=== PATIENT | male | born 1980 | race Two or more races ===

== ENCOUNTER 2021-04-26 06:42 | Inpatient (IN) | payer MEDICAID ==
[~2021-04-26] VITALS: Ht 172.7 cm; Wt 95.9 kg
--- NOTE | 2021-04-26 07:01 | NUR ---
Patient woke up around 0545 with a bleeding nose, vomiting, and lightheadedness. Patient states none of the symptoms have resolved. No hx of same. Patient denies ALMARAZ or blurry vision. Patient recently had labs on Monday and states there were multiple abnormal labs including low WBC. Patient in NAD. Respirations even and unlabored.
--- NOTE | 2021-04-26 07:04 | NUR ---
Abnormal labs also include low PLTs.
[2021-04-26] MEDS ORDERED: OXYMETAZOLINE NASAL SPRAY 0.05%,30ML ONE (07:09)
--- NOTE | 2021-04-26 07:09 | NUR ---
Report to SEA Ngo. Patient care transferred.
[2021-04-26] MEDS ORDERED: TRANEXAMIC ACID 100 MG/ML, 10ML ONE (07:10)
--- NOTE | 2021-04-26 07:21 | NUR ---
Report from BECCA RN. MD Fink at bedside for eval and med administartion.
[2021-04-26] MEDS ORDERED: TRANEXAMIC ACID 100 MG/ML, 10ML TP ONE (08:00)
[2021-04-26] MEDS ORDERED: OXYMETAZOLINE NASAL SPRAY 0.05%, 15ML NAS ONE (08:00)
[2021-04-26 08:17] LABS: BASOPHILS % (AUTO) 1 % (0-1); EOSINOPHILS % (AUTO) 4 % (1-7); LYMPHOCYTES % (AUTO) 13 % (22-44); MEAN CORPUSCULAR HEMOGLOBIN 30.8 pg (27.5-34.5); MEAN CORPUSCULAR HGB CONC 34.9 g/dL (33.2-36.2); MEAN PLATELET VOLUME 9.5 fL (7.4-10.4); MONOCYTES % (AUTO) 9 % (2-9); NEUTROPHILS % (AUTO) 72 % (42-75); PLATELET COUNT 113 x10^3/uL (130-400); RED BLOOD COUNT 2.91 x10^6/uL (4.38-5.82); RED CELL DISTRIBUTION WIDTH 13.3 % (9.4-14.8)
[2021-04-26 08:18] LABS: MD NO
[2021-04-26 08:26] LABS: ALBUMIN 3.3 g/dL (3.4-5.0); ANION GAP 12 mmol/L (5-15); CALCIUM 8.8 mg/dL (8.5-10.1); CHLORIDE 98 mmol/L (98-107); CREATININE 7.28 mg/dL (0.7-1.3)
[2021-04-26 08:28] LABS: INTERNATIONAL NORMALIZED RATIO 1.07 (0.93-1.1); PROTHROMBIN TIME 11.4 Seconds (9.6-11.5)
--- NOTE | 2021-04-26 08:40 | NUR ---
MD Fink back to bedside. Pt's nose has stopped bleeding at this time. Reviewing lab work and consulting with nephro.
--- NOTE | 2021-04-26 08:53 | NUR ---
Bedside report to SEA Galaviz, to assume full care. Pt up to bathroom with UA cup.
[2021-04-26] MEDS ORDERED: ONDANSETRON ODT 4 MG PO ONE (09:00)
--- NOTE | 2021-04-26 09:05 | NUR ---
BEDSIDE REPORT FROM SEA CARR. PT RESTING IN [facility] AT THIS TIME, PT STATES HE WAS NAUSEATED AND TOOK ZOFRAN ODT 4MG FROM HOME AT APPROX 0830 THIS MORNING. PT STATES NO OTHER NEEDS AT THIS TIME, WCTM.
[2021-04-26] MEDS ORDERED: FENTANYL PF 100 MCG/2ML ONE (11:28)
[2021-04-26] MEDS ORDERED: FLUMAZENIL 0.1 MG/1 ML, 5ML ONE (11:29)
[2021-04-26] MEDS ORDERED: MIDAZOLAM 1 MG/ML, 5ML ONE (11:29)
[2021-04-26] MEDS ORDERED: NALOXONE 1 MG/ML, 2ML ONE (11:29)
[2021-04-26] MEDS ORDERED: LIDOCAINE 1%, 20ML ONE (11:36)
[2021-04-26] MEDS ORDERED: CEFAZOLIN PMX 1GM/50ML 50 ML ONE (12:10)
[2021-04-26] MEDS ORDERED: PROMETHAZINE 25 MG/ML, 1ML IM PRN (12:30)
[2021-04-26] MEDS ORDERED: POLYETHYLENE GLYCOL 17 GM PACKET PO PRN (12:30)
[2021-04-26] MEDS ORDERED: OXYcodone IR 5MG TABLET PO PRN (12:30)
[2021-04-26] MEDS ORDERED: morphine SULFATE 10 MG/ML, 1ML IVPush PRN (12:30)
[2021-04-26] MEDS ORDERED: ONDANSETRON 2MG/ML, 2ML IVPush PRN (12:30)
[2021-04-26] MEDS ORDERED: BISACODYL 10 MG SUPP PR PRN (12:30)
[2021-04-26] MEDS ORDERED: hydrALAzine 20 MG/ML, 1ML IVPush PRN (12:30)
[2021-04-26] MEDS ORDERED: DOCUSATE 100 MG CAPSULE PO PRN (12:30)
[2021-04-26 13:21] VITALS: BP 136/78
[2021-04-26 14:01] VITALS: BP 135/77
[2021-04-26] MEDS ORDERED: AMLO-211 PO (14:03)
[2021-04-26] MEDS ORDERED: OMEP40CA8 PO (14:03)
[2021-04-26] MEDS ORDERED: FURO-92 PO (14:07)
[2021-04-26] MEDS ORDERED: CARV12.52 PO (14:07)
[2021-04-26] MEDS ORDERED: SPIR50TA4 PO (14:07)
[2021-04-26 18:45] VITALS: BP 126/68
[2021-04-26] MEDS: CARVEDILOL 12.5 MG TABLET PO SCH (20:29)
[2021-04-26] MEDS: HEPARIN 5,000 UNITS/ML, 1ML SQ SCH (20:31)
[2021-04-26] MEDS: ACETAMINOPHEN 325 MG TABLET PO PRN (20:37)
[2021-04-27 00:20] VITALS: BP 114/69
[2021-04-27] MEDS: HEPARIN 5,000 UNITS/ML, 1ML SQ SCH ×3 (05:32→21:21)
[2021-04-27 05:49] LABS: BASOPHILS % (AUTO) 1 % (0-1); EOSINOPHILS % (AUTO) 6 % (1-7); LYMPHOCYTES % (AUTO) 16 % (22-44); MEAN CORPUSCULAR HEMOGLOBIN 30.8 pg (27.5-34.5); MEAN CORPUSCULAR HGB CONC 35.5 g/dL (33.2-36.2); MONOCYTES % (AUTO) 11 % (2-9); NEUTROPHILS % (AUTO) 67 % (42-75); PLATELET COUNT 108 x10^3/uL (130-400); RED BLOOD COUNT 2.88 x10^6/uL (4.38-5.82); RED CELL DISTRIBUTION WIDTH 13.2 % (9.4-14.8)
[2021-04-27 06:02] LABS: % IRON SATURATION 9 % (20-55); ANION GAP 10 mmol/L (5-15); CALCIUM 8.8 mg/dL (8.5-10.1); CHLORIDE 103 mmol/L (98-107); CHOLESTEROL, TOTAL 176 mg/dL (140-239); CREATININE 7.34 mg/dL (0.7-1.3); IRON LEVEL 46 mcg/dL (65-175); TOTAL IRON BINDING CAPACITY 507 mcg/dL (250-450)
[2021-04-27 06:10] LABS: MD NO
[2021-04-27 06:13] LABS: CHOL/HDL RATIO 2.9; HDL CHOL % 34 % (26-37); HDL CHOLESTEROL (DIRECT) 60 mg/dL (40-60); LDL CHOLESTEROL,CALCULATED 99 mg/dL (54-169); LDL/HDL RATIO 1.7 (0.5-3.0); TRIGLYCERIDES 85 mg/dL (50-200); VLDL CHOLESTEROL 17 mg/dL (0-25)
[2021-04-27 06:51] VITALS: BP 141/79
[2021-04-27] MEDS: CARVEDILOL 12.5 MG TABLET PO SCH ×2 (08:07→21:21)
[2021-04-27] MEDS: OMEPRAZOLE 20 MG CAPSULE.DR PO SCH (08:07)
[2021-04-27] MEDS: AMLODIPINE 10 MG TAB PO SCH (08:07)
[2021-04-27] MEDS: FUROSEMIDE 40 MG TABLET PO SCH (08:07)
[2021-04-27] MEDS: ACETAMINOPHEN 325 MG TABLET PO PRN ×2 (08:19→22:42)
[2021-04-27] MEDS: FERROUS GLUCONATE 324 MG TABLET PO SCH ×2 (08:30→17:00)
[2021-04-27] MEDS: ONDANSETRON ODT 4 MG PO PRN (10:29)
[2021-04-27] MEDS: SEVELAMER CARBONATE 800MG TAB PO SCH ×2 (12:00→16:35)
[2021-04-27 13:30] VITALS: BP 132/82
[2021-04-27 18:40] VITALS: BP 121/74
[2021-04-28 00:18] VITALS: BP 122/67
[2021-04-28] MEDS: HEPARIN 5,000 UNITS/ML, 1ML SQ SCH ×3 (05:38→21:08)
[2021-04-28 07:03] VITALS: BP 131/74
[2021-04-28] MEDS: FERROUS GLUCONATE 324 MG TABLET PO SCH ×2 (08:00→17:00)
[2021-04-28] MEDS: SEVELAMER CARBONATE 800MG TAB PO SCH ×3 (08:54→17:33)
[2021-04-28] MEDS: AMLODIPINE 10 MG TAB PO SCH (08:54)
[2021-04-28] MEDS: FUROSEMIDE 40 MG TABLET PO SCH (08:54)
[2021-04-28] MEDS: OMEPRAZOLE 20 MG CAPSULE.DR PO SCH (08:55)
[2021-04-28] MEDS: CARVEDILOL 12.5 MG TABLET PO SCH ×2 (08:55→21:08)
[2021-04-28] MEDS: ACETAMINOPHEN 325 MG TABLET PO PRN ×3 (11:35→21:08)
[2021-04-28 13:10] VITALS: BP 109/61
[2021-04-28] MEDS: ONDANSETRON ODT 4 MG PO PRN (14:58)
[2021-04-28 20:00] VITALS: BP_SYST 104; BP_SYST 106; BP_DIAS 69
[2021-04-29 01:36] VITALS: BP 116/74
[2021-04-29] MEDS: HEPARIN 5,000 UNITS/ML, 1ML SQ SCH ×2 (05:43→12:11)
[2021-04-29 06:03] LABS: ALBUMIN 2.9 g/dL (3.4-5.0); CALCIUM 8.9 mg/dL (8.5-10.1); CHLORIDE 102 mmol/L (98-107); CREATININE 5.56 mg/dL (0.7-1.3)
[2021-04-29 06:04] LABS: ANION GAP 5 mmol/L (5-15)
[2021-04-29 07:49] VITALS: BP 150/86
[2021-04-29] MEDS: FERROUS GLUCONATE 324 MG TABLET PO SCH ×2 (08:34→16:57)
[2021-04-29] MEDS: SEVELAMER CARBONATE 800MG TAB PO SCH ×3 (08:35→16:58)
[2021-04-29] MEDS: OMEPRAZOLE 20 MG CAPSULE.DR PO SCH (08:36)
[2021-04-29] MEDS: FUROSEMIDE 40 MG TABLET PO SCH (08:36)
[2021-04-29] MEDS: ACETAMINOPHEN 325 MG TABLET PO PRN (08:39)
[2021-04-29] MEDS: AMLODIPINE 10 MG TAB PO SCH (09:56)
[2021-04-29] MEDS: CARVEDILOL 12.5 MG TABLET PO SCH (09:56)
[2021-04-29] MEDS: ONDANSETRON ODT 4 MG PO PRN (12:51)
[2021-04-29] MEDS ORDERED: SEVE800T8 PO (13:17)
[2021-04-29] MEDS ORDERED: FERR324T23 PO (13:17)
[2021-04-29] MEDS ORDERED: ONDA4TAB13 PO (13:17)
[2021-04-29] MEDS ORDERED: IRON SUCROSE COMPLEX 100MG/5ML IV ONE (13:30)
[2021-04-29 17:07] VITALS: BP 121/75
== END 2021-04-29 18:30 | disposition home or self-care (01) | DRG 469 ==
LOC: ED 07:36 → 4EST 11:45
PROVIDERS: ADMIT Family Medicine; ATTEND Family Medicine
PROC: 0JH63XZ Insertion of Tunneled Vascular Access Device into Chest Subcutaneous Tissue and Fascia, Percutaneous Approach (ICD-10-PCS; principal; 2021-04-26)
PROC: 02HV33Z Insertion of Infusion Device into Superior Vena Cava, Percutaneous Approach (ICD-10-PCS; 2021-04-26)
PROC: B5181ZA Fluoroscopy of Superior Vena Cava using Low Osmolar Contrast, Guidance (ICD-10-PCS; 2021-04-26)
PROC: B543ZZA Ultrasonography of Right Jugular Veins, Guidance (ICD-10-PCS; 2021-04-26)
PROC: 5A1D70Z Performance of Urinary Filtration, Intermittent, Less than 6 Hours Per Day (ICD-10-PCS; 2021-04-27)
PROC: 5A1D70Z Performance of Urinary Filtration, Intermittent, Less than 6 Hours Per Day (ICD-10-PCS; 2021-04-28)
DX: N17.9 Acute kidney failure, unspecified (principal); E11.22 Type 2 diabetes mellitus with diabetic chronic kidney disease; I12.0 Hypertensive chronic kidney disease with stage 5 chronic kidney disease or end stage renal disease; E87.1 Hypo-osmolality and hyponatremia; N18.6 End stage renal disease; D63.1 Anemia in chronic kidney disease; Z20.822 Contact with and (suspected) exposure to COVID-19; E61.1 Iron deficiency; K21.9 Gastro-esophageal reflux disease without esophagitis; K74.60 Unspecified cirrhosis of liver; R04.0 Epistaxis; R53.81 Other malaise; Z72.89 Other problems related to lifestyle
CPT/HCPCS: 36415; 77001; 99285; J3490; 36558; 76937; 80048; 80061; 80069; 82040; 82728; 83036; 83540; 83550; 83735; 83970; 84443; 85025; 85610; 86480; 86704; 86706; 86708; 86709; 86803; 87340; 90935; 93005; 99156; 99157; G0378; J0690; J1644; J1756; J2250; J3010; Q0162; U0005; C1750; J1642; J2310; U0003